=== PATIENT | male | born 2000 | race Caucasian/White ===

== ENCOUNTER 2022-06-25 13:10 | Inpatient (IN) | payer BC ==
[2022-06-25 16:52] LABS: #Basophils 0.1 thou/uL (0.0-0.2); #Eosinphils 0.1 thou/uL (0.0-0.7); #Lymphocytes 2.4 thou/uL (1.20-3.40); %Basophils 0.5 % (0.0-1.0); %Eosinophils 0.8 % (0.0-10.0); %Lymphocytes 20.6 % (21.0-51.0); %Monocytes 8.9 % (0.0-10.0); %Neutrophils 69.2 % (42.0-75.0); Hemoglobin 15.9 g/dL (14.0-18.0); Mean Corpuscular HGB CONC 34.6 g/dL (32.0-36.0); Mean Corpuscular Hemoglobin 33.2 pg (27.0-31.0); Mean Corpuscular Volume 95.7 fl (78.0-98.0); Mean Platelet Volume 7.6 fL (7.4-10.4); Platelet Count 244 10x3/uL (130-400); RBC Distribution Width 11.7 % (11.5-14.5); Red Blood Cell (RBC) Count 4.79 mill/uL (4.70-6.10); White Blood Cell (WBC) Count 11.6 10x3/uL (4.8-10.8)
[2022-06-25] MEDS ORDERED: Dextrose 50% Abboject 50 ML SYRINGE SLOW IVP PRN (17:01)
[2022-06-25] MEDS ORDERED: Dextrose 5% in Water 1,000 ML IV PRN (17:01)
[2022-06-25] MEDS ORDERED: hydrALAZINE 20 MG/ML VIAL SLOW IVP PRN (17:01)
[2022-06-25] MEDS ORDERED: Ondansetron PF 4 MG/2 ML Vial IVP PRN (17:01)
[2022-06-25] MEDS ORDERED: Cyclobenzaprine 10 MG TAB PO PRN (17:04)
[2022-06-25 17:09] LABS: PTT 27.9 sec (22.9-36.1); Prothrombin Time 13.9 sec (12.0-14.7)
[2022-06-25 17:14] LABS: ALT (SGPT) 15 U/L (8-55); AST (SGOT) 13 U/L (5-34); Alkaline Phosphatase 44 U/L (40-110); Anion Gap 13 mmol/L (10-20); BUN (Urea Nitrogen) 11 mg/dL (8.9-20.6); Bilirubin, Total 0.7 mg/dL (0.2-1.2); Calc. Creatinine Clearance 0 mL/min (70-130); Calcium 8.7 mg/dL (7.8-10.44); Carbon Dioxide 22 mmol/L (22-29); Chloride 107 mmol/L (98-107); Estimated GFR 110; Glucose 109 mg/dL (70-105); Magnesium 2.1 mg/dL (1.6-2.6); Phosphorus 3.9 mg/dL (2.3-4.7); Potassium 3.9 mmol/L (3.5-5.1); Sodium 138 mmol/L (136-145)
[2022-06-25] MEDS ORDERED: Ketorolac Tromethamine 30 MG/ML VIAL IVP SCH (17:15)
[2022-06-25] MEDS ORDERED: Sodium Chloride 0.9% 1,000 ML IV SCH (17:15)
[2022-06-25] MEDS: Morphine 4 MG/ML VIAL SLOW IVP PRN ×2 (18:04→22:09)
[2022-06-25] MEDS: Acetaminophen 500 MG TAB PO SCH (18:05)
[2022-06-25] MEDS: traMADol HCl 50 MG TAB PO SCH (18:06)
[2022-06-25 19:33] VITALS: BMI 30.2
[2022-06-25] MEDS: CEFAZOLIN 2 GM in Sodium Chloride 0.9% 100 ML IVPB SCH (21:31)
[2022-06-25] MEDS: Gabapentin 300 MG CAP PO SCH (21:32)
[2022-06-25] MEDS: Famotidine 20 MG TAB PO SCH (21:32)
[2022-06-25] MEDS: Senokot S 8.6-50 MG TAB PO SCH (21:33)
[2022-06-26] MEDS: traMADol HCl 50 MG TAB PO SCH ×3 (00:27→11:49)
[2022-06-26] MEDS: Acetaminophen 500 MG TAB PO SCH ×3 (00:27→11:48)
[2022-06-26] MEDS: Morphine 4 MG/ML VIAL SLOW IVP PRN ×2 (00:28→05:15)
[2022-06-26 04:46] LABS: #Basophils 0.1 thou/uL (0.0-0.2); #Eosinphils 0.2 thou/uL (0.0-0.7); #Lymphocytes 2.5 thou/uL (1.20-3.40); #Monocytes 0.8 thou/uL (0.11-0.59); #Neutrophils 4.6 thou/uL (1.40-6.50); %Basophils 0.7 % (0.0-1.0); %Eosinophils 2.8 % (0.0-10.0); %Lymphocytes 30.5 % (21.0-51.0); %Monocytes 10.1 % (0.0-10.0); %Neutrophils 55.9 % (42.0-75.0); Hemoglobin 14.5 g/dL (14.0-18.0); Mean Corpuscular HGB CONC 34.6 g/dL (32.0-36.0); Mean Corpuscular Hemoglobin 33.4 pg (27.0-31.0); Mean Corpuscular Volume 96.5 fl (78.0-98.0); Mean Platelet Volume 7.9 fL (7.4-10.4); Platelet Count 218 10x3/uL (130-400); RBC Distribution Width 11.6 % (11.5-14.5); Red Blood Cell (RBC) Count 4.35 mill/uL (4.70-6.10); White Blood Cell (WBC) Count 8.3 10x3/uL (4.8-10.8)
[2022-06-26 05:06] LABS: Anion Gap 12 mmol/L (10-20); BUN (Urea Nitrogen) 12 mg/dL (8.9-20.6); Calc. Creatinine Clearance 172 mL/min (70-130); Calcium 8.3 mg/dL (7.8-10.44); Carbon Dioxide 21 mmol/L (22-29); Chloride 109 mmol/L (98-107); Estimated GFR 124; Glucose 93 mg/dL (70-105); Phosphorus 4.1 mg/dL (2.3-4.7); Potassium 3.9 mmol/L (3.5-5.1); Sodium 138 mmol/L (136-145)
[2022-06-26] MEDS: CEFAZOLIN 2 GM in Sodium Chloride 0.9% 100 ML IVPB SCH (05:14)
[2022-06-26] MEDS ORDERED: fentaNYL PF 100 MCG/2 ML SYRINGE ONE (06:26)
[2022-06-26] MEDS ORDERED: Midazolam HCl 2 mg/2 ml Vial ONE (06:33)
[2022-06-26] MEDS ORDERED: PROPOFOL 200 MG/20 ML VIAL ONE (06:46)
[2022-06-26] MEDS ORDERED: Ketorolac Tromethamine 30 MG/ML VIAL ONE (06:46)
[2022-06-26] MEDS ORDERED: Ondansetron PF 4 MG/2 ML Vial ONE (06:46)
[2022-06-26] MEDS ORDERED: Lidocaine 1% PF 5 ML VIAL ONE (06:46)
[2022-06-26] MEDS ORDERED: Dexamethasone 20 MG/5 ML VIAL ONE (06:46)
[2022-06-26] MEDS ORDERED: Bupivacaine HCl 0.5%/Epinephrine 1:200,000/PF 30 ml Vial ONE (06:46)
[2022-06-26] MEDS ORDERED: CEFAZOLIN 2 GM VIAL ONE (07:00)
[2022-06-26] MEDS ORDERED: Sodium Chloride 0.9% 100 ML ONE (07:00)
[2022-06-26] MEDS: Gabapentin 300 MG CAP PO SCH (08:14)
[2022-06-26] MEDS: Famotidine 20 MG TAB PO SCH (08:14)
[2022-06-26] MEDS: Senokot S 8.6-50 MG TAB PO SCH (08:14)
[2022-06-26] MEDS ORDERED: Ondansetron HCl/PF 4 MG/2 ML Vial IVP PRN (08:49)
[2022-06-26] MEDS ORDERED: Promethazine HCl 25 MG/ML VIAL IM PRN (08:49)
[2022-06-26] MEDS ORDERED: FLU VACC QS2022-23(6MOS UP)/PF 60 MCG/0.5 ML SYRINGE IM ONE (09:00)
[2022-06-26] MEDS ORDERED: Polyethylene Glycol 3350 17 GM Packet PO SCH (09:00)
[2022-06-26] MEDS ORDERED: Bupivacaine PF 0.5% 30 ML VIAL ONE (09:05)
[2022-06-26 10:17] VITALS: BP 130/78; TEMP 97.8
[2022-06-26] MEDS ORDERED: CEFAZOLIN 2 GM in Sodium Chloride 0.9% 100 ML IVPB SCH (16:00)
[2022-06-26] MEDS ORDERED: Aspirin 81 mg Enteric Coated Tablet PO SCH (21:00)
[2022-06-26] MEDS ORDERED: Ketorolac Tromethamine 30 MG/ML VIAL IVP SCH (23:59)
== END 2022-06-26 14:25 | disposition home or self-care (01) | DRG 494 ==
LOC: SURG A 16:13
PROVIDERS: ADMIT Surgery; ATTEND Surgery
PROC: 0QSK04Z Reposition Left Fibula with Internal Fixation Device, Open Approach (ICD-10-PCS; principal; 2022-06-26)
DX: S82.842A Displaced bimalleolar fracture of left lower leg, initial encounter for closed fracture (principal); S82.62XA Displaced fracture of lateral malleolus of left fibula, initial encounter for closed fracture; V00.131A Fall from skateboard, initial encounter
CPT/HCPCS: 36415; 80048; 80053; 83735; 84100; 85025; 85610; 85730; J1100; J1885; J2250; J2270; J2405; J2704; J3490; J7050; S0020